=== PATIENT | male | born 1985 | race African-American/Black ===

== ENCOUNTER 2019-01-03 11:39 | Emergency (ER) | payer MEDICAID ==
[~2019-01-03] VITALS: Ht 180.3 cm; Wt 77.0 kg
[2019-01-03] MEDS ORDERED: IBUPROFEN 600MG TABLET PO ONE (13:15)
[2019-01-03 13:37] VITALS: BP 149/80
== END 2019-01-03 13:21 | disposition home or self-care (01) ==
LOC: ER 12:37
DX: L03.011 Cellulitis of right finger (principal); Z88.0 Allergy status to penicillin
CPT/HCPCS: 99283